=== PATIENT | male | born 1975 | race Caucasian/White ===

== ENCOUNTER → 2020-07-24 10:49 | Outpatient (BNVA) | payer OTHER, SELFPAY | PROVIDERS: PCP Internal Medicine; Visit Provider Urology | DX: Z30.2 Encounter for sterilization (principal); F41.8 Other specified anxiety disorders | CPT/HCPCS: 55250 ==

== ENCOUNTER 2020-08-12 13:10 | Outpatient (REF) | payer OTHER, SELFPAY ==
--- NOTE | 2020-08-12 | XR_ITS ---
EXAMINATION: XR LUMBOSACRAL SPINE WITH OBLIQUES CLINICAL INFORMATION: Lifting injury. Back strain. COMPARISON: None TECHNIQUE: AP, both oblique, and lateral views of the lumbar spine. Lateral view of the lumbosacral junction. FINDINGS: Minimal lumbar levoscoliosis is seen with apex at L2. Mild to moderate multilevel degenerative disc disease is seen, most pronounced from L3-4 and L5-S1. Mild multilevel marginal osteophyte formation is seen as well. The vertebral bodies are intact. The soft tissues are unremarkable. XR/XR lumbar spine 4V min IMPRESSION: Minimal lumbar levoscoliosis and mild to moderate multilevel degenerative disc disease as detailed above. No acute abnormality.
== END 2020-08-12 13:11 | disposition home or self-care (01) ==
LOC: HO.XRAY 13:10
PROVIDERS: Visit Provider Emergency Medicine
DX: S39.012A Strain of muscle, fascia and tendon of lower back, initial encounter (principal)
CPT/HCPCS: 72110

== ENCOUNTER 2020-09-07 12:39 | Outpatient (REF) | payer OTHER, SELFPAY | END 2020-09-07 12:40 | disposition home or self-care (01) | LOC: HO.LAB 12:39 | PROVIDERS: PCP Emergency Medicine; Visit Provider Internal Medicine | DX: Z20.828 Contact with and (suspected) exposure to other viral communicable diseases (principal) | CPT/HCPCS: C9803; U0003 ==

== ENCOUNTER 2020-09-29 10:22 | Outpatient (REF) | payer OTHER, SELFPAY ==
--- NOTE | 2020-09-29 | MR_ITS ---
EXAMINATION: MR LUMBAR SPINE WITHOUT CONTRAST CLINICAL INFORMATION: Low back pain. COMPARISON: Lumbar spine radiographs 08/13/2020. TECHNIQUE: MRI of the lumbar spine was obtained using routine sequences without contrast. FINDINGS: Alignment is normal. Vertebral heights are preserved. There are mixed predominantly type II degenerative endplate changes at multiple levels within the lumbar spine. There is loss of intervertebral disc height and T2 signal intensity at multiple levels related to disc degeneration. The tip of the conus medullaris is located at L1-L2. Visualized distal cord signal intensity is normal. At T12-L1 there is a small left foraminal protrusion. No canal stenosis. No mass effect on the traversing or foraminal nerve roots. At L1-L2 there is a focal right subarticular extrusion with both superior and inferior subligamentous extension of extruded disc material. This finding in conjunction with the presence of epidural lipomatosis causes severe canal stenosis. No foraminal nerve root compression. At L2-L3 there is a diffusely bulging disc. Bilateral facet degenerative change. Epidural lipomatosis. Severe canal stenosis. No foraminal nerve root compression. At L3-L4 there are small right and left subarticular extrusion's superimposed upon a diffusely bulging disc. Bilateral facet degenerative change. Epidural lipomatosis. Severe canal stenosis. No foraminal nerve root compression. At L4-L5 there is a broad central protrusion superimposed upon a bulging disc. Bilateral facet degenerative change. Mild to moderate canal stenosis. Symmetric subarticular zone narrowing causes displacement of both traversing L5 nerve roots. No foraminal nerve root compression. At L5-S1 the annular contour is normal. No canal stenosis. No mass effect on the traversing or foraminal nerve roots. Limited visualization the retroperitoneal anatomy reveals no abnormal finding. Psoas and paraspinal muscle groups are symmetric. MR/MR lumbar spine wo con IMPRESSION: There is multilevel degenerative spondylosis which is superimposed upon underlying epidural lipomatosis. There is severe canal stenosis at L1-L2, L2-L3, and L3-L4. Mild to moderate canal stenosis at L4-L5. Of note there is a relatively prominent right subarticular extrusion at L1-L2 causing asymmetric narrowing of the right subarticular zone. Small disc herniations at L3-L4 and L4-L5 are noted. No neuroforaminal compromise.
== END 2020-09-29 10:23 | disposition home or self-care (01) ==
LOC: HO.MRI 10:22
PROVIDERS: Visit Provider Emergency Medicine
DX: M51.36 Other intervertebral disc degeneration, lumbar region (principal); M54.5 Low back pain
CPT/HCPCS: 72148

== ENCOUNTER → 2021-05-24 10:55 | Outpatient (REF) | payer OTHER, SELFPAY | LOC: HO.SL 10:55 | PROVIDERS: PCP Internal Medicine; Visit Provider Internal Medicine | DX: Z13.89 Encounter for screening for other disorder (principal) ==

== ENCOUNTER 2022-11-29 08:25 | Day surgery (SDC) | payer OTHER, SELFPAY ==
--- NOTE | 2022-11-28 12:22 | P.CONAN_ITS ---
Documented by User: Kelsey Hernández NP 11/28/22 12:23 HPI - Anesthesia Eval Consult details Narrative: 47yo M for Colonoscopy [facility] Active Problems Active Problems: All Active Problems (Updated 11/28/22 @ 10:44 by Vianey Cowart, LAURA) Anxiety about health (Acute) Family planning services (Acute) Past Medical History Medical History (Updated 11/28/22 @ 10:44 by Vianey Cowart, RN) Elevated cholesterol Gout H/O hydrocele HTN (hypertension) DANIELLE (obstructive sleep apnea) Surgical History Surgical History (Updated 11/28/22 @ 10:44 by Vianey Cowart, LAURA) H/O vasectomy Social History Social History Patient Tobacco Use Status: Never used Tobacco Substance Use Frequency: Daily Are you DNR?: No Advance Directives: No Advance Directives Information Provided: Yes Nutrition Risks: No Nutritional Risk Meds Allergies Allergy/AdvReac Type Severity Reaction Status Date / Time penicillin V Allergy Unknown rash Verified 07/24/19 00:00 KIZZY Inhibitors AdvReac Intermediate COUGH Unverified 06/11/20 15:58 [KIZZY INHIBITORS] Home Medications Medication Instructions Recorded Confirmed Last Taken Type allopurinol 300 mg tablet 1 tab PO DAILY 11/28/22 11/28/22 Unknown History atorvastatin 80 mg tablet 1 tab PO DAILY 11/28/22 11/28/22 Unknown History colchicine 0.6 mg tablet 1 tab PO BID 11/28/22 11/28/22 Unknown History ibuprofen 200 mg tablet 200 mg PO Q6H PRN Pain 11/28/22 11/28/22 Unknown History losartan 50 mg tablet 1 tab PO QAM 11/28/22 11/28/22 Unknown History Exam Exam Date and Time: November 28, 2022 1222 Assessment and Plan Assessment Anesthesia Assessment: Chart Reviewed Documented by User: Dannie Bradley MD 11/29/22 09:51 PMFSH Past Medical History Medical History (Updated 11/28/22 @ 10:44 by Vianey Cowart RN) Elevated cholesterol Gout H/O hydrocele HTN (hypertension) DANIELLE (obstructive sleep apnea) Family History Family history of problems with anesthesia: No Surgical History Surgical History (Updated 11/28/22 @ 10:44 by Vianey Cowart RN) H/O vasectomy History of Problems with Anesthesia: No Social History Social History Patient Tobacco Use Status: Never used Tobacco Substance Use Frequency: Daily Are you DNR?: No Advance Directives: No Advance Directives Information Provided: Yes Nutrition Risks: No Nutritional Risk Meds Allergies Allergy/AdvReac Type Severity Reaction Status Date / Time penicillin V Allergy Unknown rash Verified 07/24/19 00:00 KIZZY Inhibitors AdvReac Intermediate COUGH Unverified 06/11/20 15:58 [KIZZY INHIBITORS] Home Medications Medication Instructions Recorded Confirmed Last Taken Type allopurinol 300 mg tablet 1 tab PO DAILY 11/28/22 11/28/22 Unknown History atorvastatin 80 mg tablet 1 tab PO DAILY 11/28/22 11/28/22 Unknown History colchicine 0.6 mg tablet 1 tab PO BID 11/28/22 11/28/22 Unknown History ibuprofen 200 mg tablet 200 mg PO Q6H PRN Pain 11/28/22 11/28/22 Unknown History losartan 50 mg tablet 1 tab PO QAM 11/28/22 11/28/22 Unknown History Exam Airway Mallampati Class: II TM Dist: <=3cm Neck ROM: Full Heart: ok Lungs: ok Assessment and Plan Assessment Anesthesia Assessment: Anesthesia Plan Discussed Final Anesthetic Review Family History of Problems with Anesthesia: No History of Problems with Anesthesia: No NPO: Yes ASA Class: III Final Preanesthetic Review: No Changes in Pt Med Stat, Meds/Allgs Chart Reviewed, Consent Obtained/Reviewed and Anes Risks/Benef Reviewed Patient Risk: Intermediate Procedure Risk: Low Anesthetic Plan Anesthetic Plan: MAC: and Agree w/ Assess. and Plan Disposition: Standard PACU
[2022-11-29] MEDS: Lactated Ringers 1,000 ML 100 ML IVCONT (08:42)
[2022-11-29 08:43] VITALS: BMI 36.9
[2022-11-29 08:50] VITALS: BP 113/76; PULSE 78; RESP 18; TEMP 36.3; O2SAT 96
--- NOTE | 2022-11-29 09:34 | P.HPSUR_ITS ---
Pre-Procedural Eval Section A Date of Service: 11/29/22 Section B Chief Complaint: screening Details of Present Illness: see H&P no changes Relevant Family History (Specify if Yes): No Relevant Social History: None Present Medications: see Short Stay Collaborative assessment Medical History: No relevant PMH History of Previous Operations: No relevant previous surgery Allergies: Allergies Allergy/AdvReac Type Severity Reaction Status Date / Time penicillin V Allergy Unknown rash Verified 07/24/19 00:00 KIZZY Inhibitors AdvReac Intermediate COUGH Unverified 06/11/20 15:58 [KIZZY INHIBITORS] Review of Systems Sugical H&P ROS: Negative: Constitution, Cardiovascular, Respiratory, Neurological, Psychiatric, Hem-Onc, Allergic/Immunologic, Gastrointestinal, Genitourinary, Musculoskeletal, Integumentary, Endocrine and Eyes/Ears/No se/Throat Exam Surgical H&P Exam: Normal: HEENT, Normal: Heart, Normal: Lungs, Normal: Extremities, Normal: Abdomen, Normal: Skin and Normal: Neurological Plan Diagnosis/Plan: Unchanged I have reviewed the history and physical and performed a pertinent physical examination on my patient. No changes have occurred unless specified. Time Spent With Patient Time: Total time managing care of this patient today ____ minutes.
--- NOTE | 2022-11-29 10:09 | P.BOP_ITS ---
Brief Operative Note Date of Service: 11/29/22 Pre-op diagnosis: screening Post-op diagnosis: same Procedure: colonoscopy Surgeon: Johnny Burton Anesthesia: MAC Was an Improvement Auditor used for this Procedure?: No Estimated blood loss (mL): 2 Pathology: other Condition: stable
[2022-11-29 10:14] VITALS: BP 119/67; PULSE 89; RESP 18; TEMP 36.6; O2SAT 95
[2022-11-29 10:29] VITALS: BP 122/75; PULSE 70; RESP 16; TEMP 36.6; O2SAT 97
--- NOTE | 2022-11-29 12:33 | OP_ITS ---
SURGEON: Johnny Burton MD INDICATIONS: Colon cancer screening. PREOPERATIVE DIAGNOSIS: POSTOPERATIVE DIAGNOSIS: PROCEDURE PERFORMED: ESTIMATED BLOOD LOSS: COMPLICATIONS: ANESTHESIA: ASSISTANTS: SPECIMENS: MEDICATIONS: Monitored anesthesia care. DESCRIPTION OF PROCEDURE: The procedure was performed on 11/29/2022. A history and physical was performed. The risks and benefits of the procedure were explained to the patient. Informed consent was obtained. The patient was placed in the left lateral decubitus position. A digital rectal exam was performed and was found to be normal. The Olympus pediatric video colonoscope was introduced into the rectum and advanced to the cecum without difficulty. The cecum was identified by transillumination, palpation, and identification of the ileocecal valve. Examination was performed. The scope was removed. He tolerated the procedure well and was retuned to the recovery area in stable condition. FINDINGS: The terminal ileum was examined and appeared normal. The visualized colonic mucosa was within normal limits without evidence of masses or ulcers. Three polyps were identified and removed with biopsy forceps and cold snare. These were located in the cecum at 60 cm and at 40 cm, all were less than 10 mm. There was mild sigmoid diverticulosis. The quality of the prep was good. Retroflexed examination showed moderate-sized internal hemorrhoids. IMPRESSION: Colon polyps. RECOMMENDATION: Follow up the biopsy results. MD RACHELE Lynne/WILLI / [id number]
== END 2022-11-29 11:25 | disposition home or self-care (01) ==
PROVIDERS: PCP Internal Medicine; Visit Provider Internal Medicine Gastroenterology
PROC: 0DJD8ZZ Inspection of Lower Intestinal Tract, Via Natural or Artificial Opening Endoscopic (ICD-10-PCS; CPT 45378; principal; 2022-11-29 09:30)
DX: Z12.11 Encounter for screening for malignant neoplasm of colon (principal); D12.0 Benign neoplasm of cecum; D12.4 Benign neoplasm of descending colon; D12.5 Benign neoplasm of sigmoid colon
CPT/HCPCS: 45385; 45380; 88305

== ENCOUNTER 2023-08-24 08:31 | Outpatient (REF) | payer OTHER, SELFPAY ==
[2023-08-24 12:15] LABS: Estimated Average Glucose 94 mg/dL; Hemoglobin A1c % 4.9 % (<6.0)
[2023-08-24 12:50] LABS: Alanine Aminotransferase 53 U/L (0-40); Albumin Level 4.4 g/dL (3.5-5.0); Alkaline Phosphatase 66 U/L (39-117); Anion Gap 12 (12-20); Aspartate Amino Transferase 29 U/L (5-37); Bilirubin Total 0.5 mg/dL (0.0-1.0); Blood Urea Nitrogen 18 mg/dL (9-16); Calcium 9.9 mg/dL (8.4-10.2); Carbon Dioxide 26 mmol/L (22-29); Chloride 106 mmol/L (96-108); Cholesterol 190 mg/dL (<200); Estimated Glomerular Filt Rate > 60; Glucose Random 97 mg/dL (60-115); HDL Cholesterol 44 mg/dL (>40); LDL Cholesterol Calculated 84 mg/dL (<100); Potassium 4.5 mmol/L (3.3-5.1); Sodium 139 mmol/L (135-145); Total Protein 7.4 g/dL (6.5-8.0); Triglycerides 311 mg/dL (<150)
== END 2023-08-24 08:32 | disposition home or self-care (01) ==
LOC: HO.HHCL 08:31
PROVIDERS: Visit Provider General Practice
DX: E66.9 Obesity, unspecified (principal); Z68.36 Body mass index [BMI] 36.0-36.9, adult
CPT/HCPCS: 36415; 80053; 80061; 83036; 84443

== ENCOUNTER → 2023-09-28 15:57 | Outpatient (REF) | payer OTHER, SELFPAY | LOC: HO.SL 15:57 | PROVIDERS: PCP Internal Medicine; Visit Provider General Practice | DX: G47.33 Obstructive sleep apnea (adult) (pediatric) (principal); R40.0 Somnolence | CPT/HCPCS: 95806 ==

== ENCOUNTER → 2023-09-28 19:00 | Outpatient (BNV) | payer OTHER, SELFPAY | PROVIDERS: PCP Internal Medicine; Visit Provider Internal Medicine | DX: G47.33 Obstructive sleep apnea (adult) (pediatric) (principal) | CPT/HCPCS: 95806 ==

== ENCOUNTER 2025-01-22 08:10 | Outpatient (REF) | payer OTHER, SELFPAY ==
[2025-01-22 12:13] LABS: Cholesterol 223 mg/dL (<200); HDL Cholesterol 38 mg/dL (>40); Triglycerides 844 mg/dL (<150)
[2025-01-22 12:31] LABS: Alanine Aminotransferase 68 U/L (0-40); Alkaline Phosphatase 56 U/L (39-117); Anion Gap 13 (12-20); Aspartate Amino Transferase 43 U/L (5-37); Bilirubin Total 0.3 mg/dL (0.0-1.0); Blood Urea Nitrogen 17 mg/dL (9-16); Calcium 9.2 mg/dL (8.4-10.2); Carbon Dioxide 20 mmol/L (22-29); Chloride 111 mmol/L (96-108); Estimated Glomerular Filt Rate > 60; Glucose Random 103 mg/dL (60-115); Potassium 4.1 mmol/L (3.3-5.1); Sodium 140 mmol/L (135-145); Total Protein 6.8 g/dL (6.5-8.0)
== END 2025-01-22 08:11 | disposition home or self-care (01) ==
LOC: HO.HHCL 08:10
PROVIDERS: Visit Provider General Practice
DX: I10 Essential (primary) hypertension (principal)
CPT/HCPCS: 36415; 80053; 80061